=== PATIENT | male | born 1960 ===

== ENCOUNTER → 2022-10-27 | Outpatient (CLI) | payer OTHER ==
--- NOTE | 2022-10-27 08:56 | US ---
EXAMINATION TYPE: US liver DATE OF EXAM: 10/27/2022 COMPARISON: NONE CLINICAL HISTORY: 61-year-old male R74.01 ELEVATION OF LEVELS OF LIVER TRANSAMINASE L. TECHNIQUE: Multiple sonographic images of the right upper quadrant are obtained. FINDINGS: EXAM MEASUREMENTS: Liver Length: 15.8 cm Gallbladder Wall: 1 mm CBD: 0.60 cm, borderline in caliber. Right Kidney: 10.9 x 4.3 x 4.7 cm Pancreas: Only a small portion of the pancreatic tail is obscured by bowel gas shadowing. Visualized portions show no gross abnormality. Liver: Nonspecific shadowing calcification measuring 7 mm in the right lobe. Probably related to rex or granulomatous disease. Otherwise, there is normal homogeneous appearance. No other focal lesion. Gallbladder: wnl Evidence for sonographic Adams's sign: No CBD: Borderline caliber bile duct, acceptable given the patient's age. Right Kidney: wnl IMPRESSION: No gallstones. Bile duct caliber of 6 mm is acceptable given patient's age. A 7 mm calcification in t he liver likely reflects prior granulomatous disease. Otherwise, normal homogeneous appearance to the liver parenchyma by ultrasound.
[2022-10-27 16:41] LABS: ALT 51 U/L (10-49); AST 37 U/L (14-35); African American GFR (CKD) 85.2 (60.0-200.0); Albumin 4.7 g/dL (3.8-4.9); Albumin/Globulin Ratio 1.72 (1.60-3.17); Alkaline Phosphatase 72 U/L (41-126); BUN/Creat Ratio 19.25 Ratio (12.00-20.00); Blood Urea Nitrogen 20.6 mg/dL (9.0-27.0); Calcium 9.4 mg/dL (8.7-10.3); Carbon Dioxide 23.6 mmol/L (20.0-27.5); Chloride 106 mmol/L (96-109); Chol/HDL Ratio 2.58 Ratio; Globulin 2.7 g/dL (1.6-3.3); Glucose 105 mg/dL (70-110); LDL Cholesterol,Calculated 80.4 mg/dL (0.0-131.0); Non-African American GFR(CKD) 73.5 (60.0-200.0); Potassium 4.8 mmol/L (3.5-5.5); Sodium 138 mmol/L (135-145); Total Protein 7.4 g/dL (6.2-8.2)
[2022-10-27 17:37] LABS: Hepatitis A Antibody IgM Nonreactive (Nonreactive); Hepatitis B Core IgM Nonreactive (Nonreactive); Hepatitis C IgG Antibody Nonreactive (Nonreactive)
[2022-10-27 19:09] LABS: Hepatitis B Surface Antigen Nonreactive (Nonreactive)
[2022-10-29 04:03] LABS: % Iron Saturation 26.62 (15.00-50.00)
== END | disposition home or self-care (01) ==
LOC: RADUSWWP 07:13
PROVIDERS: ATTEND Internal Medicine
DX: R74.01 Elevation of levels of liver transaminase levels (principal)
CPT/HCPCS: 76705; 80053; 80061; 80074; 82728; 83540; 83550; 86038

== ENCOUNTER 2022-11-02 07:10 | Day surgery (SDC) | payer OTHER ==
[2022-10-28 11:02] VITALS: BMI 22.9
[~2022-11-02 07:10] MED LIST: LACTATED RINGERS 1,000 ML IV SCH
[2022-11-02 07:28] VITALS: TEMP 97.6
[2022-11-02] MEDS ORDERED: PROPOFOL 10 MG/ML 20 ML VIAL IV ONE (08:13)
--- NOTE | 2022-11-02 08:37 | P.PCN ---
Date of Procedure: 11/02/22 Procedure(s) Performed: PREOPERATIVE DIAGNOSIS: Screening POSTOPERATIVE DIAGNOSIS: diverticulosis, polyps PROCEDURE: colonoscopy With snare polypectomy ANESTHESIA: MAC SURGEON: Al Palomo M.D. SPECIMENS: polyps ENDOSCOPIC PROCEDURE: The patient was placed on the endoscopy table in the left decubitus position. The Olympus colonoscope was inserted into the anus and passed under direct visualization to the base of the cecum. The appendiceal orifice was visualized. From that point the scope was slowly withdrawn inspecting all surfaces carefully. There were no neoplastic inflammatory or polypoid lesions throughout the cecum or ascending colon. In the transverse colon a small polyp was removed using the cold snare technique. The remainder of the transverse and descending colon appeared normal. In the sigmoid colon at 19 cm a pedunculated polyp was seen and removed using the snare with cautery technique. In the rectum a small polyp was seen at about 3 cm and removed in a similar fashion. The patient had moderate left-sided diverticulosis with some tortuosity. Digital rectal examination revealed a somewhat tight anal sphincter and a possible small posterior anal fissure. digital rectal examination was normal. The patient was taken to the recovery room in stable condition per anesthesia guidelines. RECOMMENDATIONS: resume diet. Await biopsy results. Repeat colonoscopy 5 years.
[2022-11-02 08:40] VITALS: RESP 16
[2022-11-02 09:00] VITALS: PULSE 55
[2022-11-02 09:13] VITALS: BP 107/71
== END 2022-11-02 09:28 | disposition home or self-care (01) ==
LOC: ORWHC2ENDO 07:10
PROVIDERS: ATTEND Surgery
DX: Z12.11 Encounter for screening for malignant neoplasm of colon (principal); D12.3 Benign neoplasm of transverse colon; D12.5 Benign neoplasm of sigmoid colon; D12.8 Benign neoplasm of rectum
CPT/HCPCS: 88305; 45385; J2704

== ENCOUNTER → 2022-12-06 | Outpatient (CLI) | payer OTHER ==
[2022-12-06 11:17] LABS: Basophils # (A) 0.04 X 10*3/uL (0.00-0.10); Basophils % (A) 0.7 %; Eosinophils # (A) 0.03 X 10*3/uL (0.04-0.35); Eosinophils % (A) 0.5 %; HCT 43.1 % (39.6-50.0); HGB 13.9 g/dL (13.0-17.0); Immature Grans, Automated 0.2 %; Lymphocytes # (A) 2.14 X 10*3/uL (0.90-5.00); Lymphocytes % (A) 36.2 %; MCHC 32.3 g/dL (32.0-37.0); Mean Platelet Volume 9.7 fL (9.5-12.2); Monocytes # (A) 0.42 X 10*3/uL (0.20-1.00); Monocytes % (A) 7.1 %; NRBC Per 100 WBC 0 /100 WBCS (0.0-0.0); Neutrophils # (A) 3.27 X 10*3/uL (1.80-7.70); Neutrophils % (A) 55.3 %; Platelet Count 191 X 10*3/uL (140-440); RBC 4.49 X 10*6/uL (4.40-5.60); RDW 12.9 % (11.5-14.5); WBC 5.91 X 10*3/uL (4.50-10.00)
== END | disposition home or self-care (01) ==
LOC: LABPAT 07:07
PROVIDERS: ATTEND Surgery
DX: Z01.812 Encounter for preprocedural laboratory examination (principal); K40.20 Bilateral inguinal hernia, without obstruction or gangrene, not specified as recurrent; D64.9 Anemia, unspecified; F17.200 Nicotine dependence, unspecified, uncomplicated; R00.1 Bradycardia, unspecified; I45.19 Other right bundle-branch block; R94.31 Abnormal electrocardiogram [ECG] [EKG]
CPT/HCPCS: 36415; 85025; 93005

== ENCOUNTER 2022-12-13 09:16 | Day surgery (SDC) | payer OTHER ==
[2022-12-09 12:39] VITALS: BMI 22.9
[~2022-12-13 09:16] MED LIST changes: +ACETAMINOPHEN TAB 500 MG TAB PO PRN; +DEXAMETHASONE SOD PHOSPHATE 4 MG/ML 1 ML VIAL IV ONE; -LACTATED RINGERS 1,000 ML IV SCH; +ONDANSETRON 4 MG/2 ML VIAL IVP ONE
[2022-12-13 09:54] VITALS: TEMP 97.8
[2022-12-13] MEDS: LACTATED RINGERS 1,000 ML IV SCH ×2 (10:15→11:09)
[2022-12-13] MEDS: HEPARIN SODIUM,PORCINE/PF 5,000 UNIT/0.5 ML SYRINGE SQ PRN ×2 (10:23→10:40)
[2022-12-13] MEDS ORDERED: MIDAZOLAM 2 MG/2 ML VIAL IV ONE (10:33)
[2022-12-13] MEDS ORDERED: TAMSULOSIN 0.4 MG CAP.ER.24H PO STA ×2 (10:52→12:57)
--- NOTE | 2022-12-13 10:52 | P.GSHP ---
History of Present Illness H&P Date: 12/13/22 Chief Complaint: Bilateral inguinal hernia 62-year-old male here today for repair bilateral inguinal hernia. Has noticed an increasing bulge left groin. Mild soreness. Some stool habit changes appreciated as well. Recent colonoscopy showed diverticulosis. Only a small b ulge in the right groin he says. Past Medical History Past Medical History: No Reported History Additional Past Medical History / Comment(s): gretchen inguinal hernia History of Any Multi-Drug Resistant Organisms: None Reported Additional Past Surgical History / Comment(s): COLONOSCOPY Past Anesthesia/Blood Transfusion Reactions: No Reported Reaction Additional Past Anesthesia/Blood Transfusion Reaction / Comment(s): no hx of general anesthesia Past Psychological History: No Psychological Hx Reported Smoking Status: Never smoker Past Alcohol Use History: None Reported Past Drug Use History: Marijuana Additional Drug Use History / Comment(s): currently smokes marijuana daily - Past Family History Mother Family Medical History: Cancer Medications and Allergies Home Medications Medication Instructions Recorded Confirmed Type No Known Home Medications 10/28/22 12/13/22 History Allergies Allergy/AdvReac Type Severity Reaction Status Date / Time No Known Allergies Allergy Verified 12/13/22 09:47 Surgical - Exam Vital Signs Temp Pulse Resp BP Pulse Ox 97.8 F 61 16 109/71 99 12/13/22 09:47 12/13/22 09:47 12/13/22 09:47 12/13/22 09:47 12/13/22 09:47 Physical exam: General: Well-developed, well-nourished HEENT: Normocephalic, sclerae nonicteric Abdomen: Nontender, nondistended, bilateral inguinal hernias left greater than right Extremities: No edema Neuro: Alert and oriented Assessment and Plan (1) Bilateral inguinal hernia Narrative/Plan: 62-year-old male with bilateral inguinal hernia. We'll proceed with laparoscopic da Manju assisted repair bilateral inguinal hernia with mesh, possible open. Risks of bleeding, infection, recurrence, bladder and bowel injury, numbness, nerve injury, conversion to an open procedure were discussed with the patient. The patient understands and wishes to proceed. Current Visit: Yes Status: Acute Code(s): K40.20 - BI INGUINAL HERNIA, W/O OBST OR GANGRENE, NOT SPCF RECUR SNOMED Code(s): 10433886
[2022-12-13] MEDS ORDERED: PROPOFOL 10 MG/ML 20 ML VIAL IV ONE (11:04)
[2022-12-13] MEDS ORDERED: SODIUM CHLORIDE 0.9% (PF) 10 ML VIAL ONE (11:04)
[2022-12-13] MEDS ORDERED: PHENYLEPHRINE-0.9% NACL SYG 1,000 MCG/10 ML SYRINGE ONE (11:04)
[2022-12-13] MEDS ORDERED: LIDOCAINE 2% INJ 20 MG/ML (2 ML VIAL) ONE (11:04)
[2022-12-13] MEDS ORDERED: GLYCOPYRROLATE 0.2 MG/ML 2 ML VIAL ONE (11:04)
[2022-12-13] MEDS ORDERED: HYDROmorphone (PF) 1 MG/ML ONE (11:04)
[2022-12-13] MEDS ORDERED: KETOROLAC 15 MG/ML 1 ML VIAL ONE (11:04)
[2022-12-13] MEDS ORDERED: SUCCINYLCHOLINE CHLORIDE 200 MG/10 ML VIAL IV ONE (11:04)
[2022-12-13] MEDS ORDERED: MIDAZOLAM 2 MG/2 ML VIAL ONE (11:04)
[2022-12-13] MEDS ORDERED: NEOSTIGMINE 1 MG/ML 10 ML VIAL ONE (11:04)
[2022-12-13] MEDS ORDERED: fentaNYL (PF) 50 MCG/ML 2 ML AMP ONE (11:04)
[2022-12-13] MEDS ORDERED: ROCURONIUM 10 MG/ML (5 ML VIAL) IV ONE (11:04)
[2022-12-13] MEDS ORDERED: ROPIVACAINE 5 MG/ML 30 ML VIAL ONE (11:04)
[2022-12-13] MEDS ORDERED: DEXAMETHASONE SOD PHOSPHATE 4 MG/ML 1 ML VIAL ONE (11:04)
[2022-12-13] MEDS ORDERED: BUPIVACAIN-EPI 0.25%-1:200,000 30 ML VIAL SQ ONE (11:49)
[2022-12-13] MEDS ORDERED: LACTATED RINGERS 1,000 ML IV ONE ×2 (12:02→15:15)
[2022-12-13] MEDS ORDERED: ACETAMINOPHEN TAB 325 MG TAB PO SCH (13:00)
--- NOTE | 2022-12-13 13:03 | P.OP ---
Date of Procedure: 12/13/22 Procedure(s) Performed: PREOPERATIVE DIAGNOSIS: Bilateral inguinal hernia POSTOPERATIVE DIAGNOSIS: Same PROCEDURE: Laparoscopic da Manju assisted repair bilateral inguinal hernia with mesh SURGEON: Dr. Palomo ANESTHESIA: General OPERATIVE PROCEDURE DETAILS: Patient was placed in the operating table in the supine position. The patient was placed under general anesthesia. The abdomen was prepped and draped in usual sterile fashion. A small curvilinear supraumbilical incision was made. The fascia was retracted anteriorly with Allison forceps. The Veress needle was inserted. The saline drop test was normal. Insufflation took place to 15 mmHg. An 8 mm trocar was placed into the peritoneal cavity. 2 additional 8 mm trochars were placed in the right upper quadrant and left upper quadrant under visualization. The robotic arms were then brought in and docked into place. The fenestrated bipolar was used in the left arm and the laparoscopic giovany was utilized in the right arm. A 30 8 mm scope was used in the up position. The peritoneal cavity was inspected. The patient had a moderate sized left direct inguinal hernia and a small direct and indirect right inguinal hernia. A incision was created on the peritoneum across the lower abdomen superior to the bladder. The preperitoneal dissection took place bilaterally at that time. The direct hernia on the left side was reduced using blunt dissection. Valentin's ligament and the pubic symphysis were well- visualized. Dissection on the right side of the direct and indirect hernia sac then took place without difficulty as well. Once we had full dissection in both sacs fully reduced 2 separate 15 x 10 mm Progrip mesh were placed within the abdomen crossing one another in the midline. These were then sutured to the Valentin's ligament across the pubic symphysis to the opposite side using a running 30 absorbable V lock suture. The same stitch was then brought to the midline and the mesh was sutured to the abdominal wall in the midline superiorly. This covered all hernia spaces nicely. The peritoneal defect was then closed bilaterally using 2 separate absorbable 2-0 VLok sutures. The hernia sacs were incorporated into the peritoneal closure to help prevent future recurrence. The pneumoperitoneum was then evacuated. The skin of all 3 sites was closed using a 4-0 Monocryl stitch. Skin glue was then applied. TYPE OF MESH USED: Progrip 15 x 10 LOCATION OF MESH: Preperitoneal/sub-lay FIXATION: Absorbable 30V lock PREOPERATIVE DISCUSSION ON SMOKING CESSASTION: Yes PREOPERATIVE DISCUSSION ON MORBID OBESITY: Yes PREOPERATIVE DISCUSSION ON APPROPRIATE USE OF NARCOTIC USE: Yes PREOPERATIVE EDUCATION: Multi Modal, Smoking Cessation and Weight Loss with BMI over 35. DISPOSITION: Stable to recovery room
[2022-12-13] MEDS: HYDROmorphone 0.5 MG/0.5 ML SYRINGE IVP PRN ×3 (13:43→14:23)
--- NOTE | 2022-12-13 14:00 | P.ANPRN ---
Procedure Note - Anesthesia - Nerve Block Performed Bilateral Erector Spinae Single Time Out Performed: Yes Date of Procedure: 12/13/22 Procedure Start Time: 10:33 Procedure Stop Time: 10:43 Location of Patient: PreOp Indication: Acute Post-Operative Pain, Requested by Surgeon Sedation Type: Sedate with meaningful contact maintained Preparation: Sterile Prep Position: Prone Needle Types: Pajunk Needle Gauge: 21 Ultrasound used to visualize needle placement: Yes Ultrasound used to observe medication spread: Yes Blood Aspirated: No Pain Paresthesia on Injection Noted: No Resistance on Injection: Normal Image Stored and Saved: Yes Events: Uneventful and Well Tolerated (Ropivacaine 0.5% 15 mL plus normal saline 10 mL plusPrednisone 4 mg given at L1 bilaterally)
[2022-12-13 15:47] VITALS: RESP 14
[2022-12-13] MEDS ORDERED: IBUPROFEN 600 MG TAB PO SCH (16:00)
[2022-12-13 16:07] VITALS: BP 97/58; PULSE 76
== END 2022-12-13 16:43 | disposition home or self-care (01) ==
LOC: OR 09:16
PROVIDERS: ATTEND Surgery
DX: K40.20 Bilateral inguinal hernia, without obstruction or gangrene, not specified as recurrent (principal); F12.90 Cannabis use, unspecified, uncomplicated; G89.18 Other acute postprocedural pain; Z80.0 Family history of malignant neoplasm of digestive organs; Z98.890 Other specified postprocedural states
CPT/HCPCS: 64999; 86900; 86901; 86850; 49650; C1781; J2250; J0330; J1100; J2710; J0690; J2405; J3010; J1170 ×2; J2795; J1885; J2370; J2704; J1644; J2001

== ENCOUNTER → 2023-02-04 | Outpatient (CLI) | payer OTHER ==
--- NOTE | 2023-02-05 09:05 | US ---
EXAMINATION TYPE: US kidneys/renal and bladder DATE OF EXAM: 02/04/2023 COMPARISON: NONE CLINICAL INDICATION: Male, 62 years old with history of R31.29 OTHER MICROSCOPIC HEMATURIA; Hematuria EXAM MEASUREMENTS: Right Kidney: 9.6 x 4.3 x 6.3 cm Left Kidney: 11.1 x 4.8 x 4.2 cm Echogenic area right lobe of liver .8 x .5 x .8 cm incidental finding. Right Kidney: Dilated renal pelvis. Left Kidney: No hydronephrosis or masses seen Bladder: wnl Bilateral Jets seen: Yes There is no evidence for hydronephrosis at this point in time. No nephrolithiasis is seen. No kristal s are identified. The urinary bladder is anechoic. Bilateral ureteral jets are seen. IMPRESSION: 1. Prominent right renal pelvis may reflect extrarenal pelvis versus mild hydronephrosis. 2. Abnormally echogenic focus within the liver may reflect hepatic calcification.
== END | disposition home or self-care (01) ==
LOC: RADUSWWP 15:29
PROVIDERS: ATTEND Internal Medicine
DX: R31.29 Other microscopic hematuria (principal)
CPT/HCPCS: 76770

== ENCOUNTER → 2023-02-18 | Outpatient (CLI) | payer OTHER ==
[2023-02-18 16:36] LABS: ALT 56 U/L (10-49); AST 33 U/L (14-35); Albumin 4.6 d/dL (3.8-4.9); Albumin/Globulin Ratio 1.77 Ratio (1.60-3.17); Alkaline Phosphatase 70 U/L (41-126); Bilirubin, Conjugated <0.20 mg/dL (0.20-0.40); Bilirubin,Unconjugated >0.10 mg/dL (0.20-1.00); Calcium 9.3 mg/dL (8.7-10.3); Carbon Dioxide 21.7 mmol/L (21.6-31.8); Chloride 106 mmol/L (96-109); Globulin 2.6 d/dL (1.6-3.3); Glucose 112 mg/dL (70-110); Potassium 4.9 mmol/L (3.5-5.5); Sodium 139 mmol/L (135-145); Total Bilirubin 0.3 mg/dL (0.3-1.2); Total Protein 7.2 d/dL (6.2-8.2)
[2023-02-18 17:19] LABS: Ceruloplasmin 21.6 mg/dL (20.0-60.0)
[2023-02-18 17:41] LABS: Hepatitis A Antibody IgM Nonreactive; Hepatitis B Core IgM Nonreactive; Hepatitis B Surface Antigen Nonreactive; Hepatitis C IgG Antibody Nonreactive
[2023-02-18 23:31] LABS: Cryptosporidium Antigen Negative (Negative)
[2023-02-19 05:58] LABS: EBV - VCA IgM <10.0 U/mL (<36.0)
[2023-02-21 14:25] LABS: Smooth Muscle Antibody 13 UNITS (<20)
== END | disposition home or self-care (01) ==
LOC: LABWHC1 07:56
PROVIDERS: ATTEND Internal Medicine
DX: R19.7 Diarrhea, unspecified (principal)
CPT/HCPCS: 36415; 80053; 80074; 82248; 82390; 82525; 83516; 86645; 86665; 87045; 87046; 87324; 87328; 87329